=== PATIENT | male | born 1995 | race Caucasian/White ===

== ENCOUNTER 2021-06-25 04:13 | Emergency (ER) | payer OTHER ==
[2021-06-25 05:31] LABS: BASOPHIL 0.6 % (0-2); EOSINOPHIL 2.3 % (0-5); HCT 44.9 % (42.0-52.0); HGB 15.6 g/dl (13.2-18.0); LYMPHOCYTE 29.2 % (15-48); MCH 32.8 pg (25.0-31.0); MCHC 34.7 g/dL (32.0-36.0); MCV 94.3 fL (78.0-100.0); MONOCYTE 9.8 % (0-12); MPV 9.9 fL (6.0-9.5); NEUTROPHIL 57.9 % (41-80); NRBC 0; PLT 321 K/uL (150-400); RBC 4.76 M/uL (4.70-6.00); RDW 12.2 % (11.5-14.0); WBC 9.4 K/uL (4.0-10.5)
[2021-06-25 05:49] LABS: BUN/CREAT RATIO (CALC) 22.9 RATIO; CREATININE 0.96 mg/dL (0.67-1.17); POTASSIUM 3.9 mmol/L (3.5-5.1)
[2021-06-25] MEDS ORDERED: CLEOCIN300 MG PO (08:03)
[2021-06-25] MEDS ORDERED: CIPRO500 MG PO (08:03)
[2021-06-25] MEDS ORDERED: DIFLUCAN150 MG PO (08:03)
[2021-06-25] MEDS ORDERED: BACTROBAN NASAL1 GM (08:03)
== END 2021-06-25 08:20 | disposition home or self-care (01) ==
LOC: FER 04:13
PROVIDERS: Internal Medicine
DX: L03.314 Cellulitis of groin (principal); F17.210 Nicotine dependence, cigarettes, uncomplicated; Z88.1 Allergy status to other antibiotic agents
CPT/HCPCS: 36415; 72193; 80048; 84145; 85025; Q9967